=== PATIENT | male | born 1930 | race Caucasian/White ===

== ENCOUNTER 2017-03-07 14:33 | Inpatient (IN) | payer BC ==
[~2017-03-07] VITALS: Ht 200.7 cm; Wt 113.4 kg
[2017-03-07 14:41] VITALS: BP_SYST 108
[2017-03-07] MEDS ORDERED: NACL 0.9% 1,000 ML IV SCH ×2 (14:56→17:30)
[2017-03-07 15:13] LABS: BILIRUBIN,URINE NEGATIVE (NEGATIVE); BLOOD, URINE 2+ (NEGATIVE); CLARITY/URINE SL CLOUDY (CLEAR); COLOR,URINE YELLOW (YELLOW); GLUCOSE,URINE NEGATIVE (NEGATIVE); KETONES,URINE NEGATIVE (NEGATIVE); LEUKOCYTE ESTERASE ,URINE 3+ (NEGATIVE); NITRITE, URINE NEGATIVE (NEGATIVE); PH,URINE 5.5 (5.0-8.0); PROTEIN URINE TRACE (NEGATIVE); UROBILINOGEN,URINE 0.2 (0.2-1.0)
[2017-03-07 15:22] LABS: BACTERIA,URINE MANY /HPF (None Seen); MUCUS,URINE None Seen /LPF (None Seen); RBC,URINE 0-3 /HPF (0-3); WBC,URINE >100 /HPF (0-3)
[2017-03-07 15:23] LABS: HEMOGLOBIN 14.8 g/dL (14.0-18.0); RED CELL DISTRIBUTION WIDTH 15.7 % (9.0-15.0)
[2017-03-07 15:26] LABS: ANION GAP 7 (5-15); CALCIUM 9.3 mg/dL (8.4-11.0); CHLORIDE 105 mmol/L (98-107); CREATININE 1.52 mg/dL (0.55-1.30); GLUCOSE 124 mg/dL (70-99); HEMATOCRIT 46.5 % (36-54); MEAN CORPUSCULAR HEMOGLOBIN 31 pg (27-31); MEAN CORPUSCULAR HGB CONC 32 % (32-36); MEAN CORPUSCULAR VOLUME 98 fL (79.0-98.0); POTASSIUM 4.3 mmol/L (3.5-5.1); RED BLOOD CELL COUNT(AUTO) 4.76 MIL/uL (4.2-6.2); SODIUM SERUM 141 mmol/L (136-145); UREA NITROGEN, BLOOD 40 mg/dL (8-21)
[2017-03-07 15:29] LABS: INR 2.5 (0.80-1.20); PLATELET COUNT (AUTO) 67 K/uL (130-430); PROTHROMBIN TIME 28.1 SECS (9.5-12.5); WHITE BLOOD COUNT (AUTO) 123.3 K/uL (4.8-10.8)
[2017-03-07 15:31] LABS: ALANINE AMINOTRANSFERASE 19 U/L (12-78); ASPARTATE AMINOTRANSFERASE 19 U/L (10-37); TOTAL BILIRUBIN 2.1 mg/dL (0.0-1.0); TOTAL PROTEIN, SERUM 6.8 g/dL (6.4-8.3)
[2017-03-07 15:48] LABS: BAND % (MANUAL) 0 % (0-6); LYMPHOCYTES % (MANUAL) 19 % (20-46)
[2017-03-07 15:49] LABS: ATYPICAL LYMPHOCYTES % 71 % (0-0); BASOPHILS % (MANUAL) 0 % (0-2); EOSINOPHILS % (MANUAL) 0 % (0-7); MONOCYTES % (MANUAL) 0 % (0-11)
[2017-03-07] MEDS ORDERED: DIGO250T78 PO (15:53)
[2017-03-07] MEDS ORDERED: WARF4TAB2 PO (15:53)
[2017-03-07] MEDS ORDERED: FURO-150 PO (15:53)
[2017-03-07] MEDS ORDERED: CARV25TA55 PO (15:55)
[2017-03-07] MEDS ORDERED: PRED5TAB PO (15:55)
[2017-03-07] MEDS ORDERED: TAMS-11 PO (15:55)
[2017-03-07] MEDS ORDERED: BUDE6HFA INH (15:55)
[2017-03-07] MEDS ORDERED: VANCOMYCIN HCL 1,000 MG in NS 250 ML IV ONE (16:15)
[2017-03-07] MEDS ORDERED: NOREPINEPHRINE BITARTRATE 4 MG in NS 250 ML IV ONE (16:15)
[2017-03-07] MEDS ORDERED: PIPERACILLIN/TAZO 4.5 GM in NS 100 ML IV ONE (16:15)
[2017-03-07] MEDS ORDERED: PIPERACILLIN/TAZOBACTAM 4.5 GM/VIAL (ZOSYN) IV ONE (16:24)
[2017-03-07] MEDS: cefTRIAXone 1 GM IVPB PREMIX 50 ML IV SCH (17:15)
[2017-03-07 17:39] VITALS: BP_SYST 11
[2017-03-07 18:10] VITALS: BP_SYST 111
[2017-03-07 19:45] VITALS: BP_SYST 115
[2017-03-07] MEDS: 0.45% NACL 1,000 ML IV SCH (21:38)
[2017-03-07] MEDS: SULFAMETHOXAZOLE /TRIMETHOPRIM 10 ML in D5W 250 ML IV SCH (21:41)
[2017-03-07] MEDS: IPRATROPIUM/ALBUTEROL SULFATE 3 ML AMPUL.NEB INH SCH (22:29)
[2017-03-07 22:30] VITALS: BP_SYST 115
[2017-03-08] VITALS (7 sets, daily range): BP systolic 102–111
[2017-03-08] MEDS: IPRATROPIUM/ALBUTEROL SULFATE 3 ML AMPUL.NEB INH SCH ×6 (03:43→23:47)
[2017-03-08 06:26] LABS: INR 2.3 (0.80-1.20); PROTHROMBIN TIME 25.7 SECS (9.5-12.5)
[2017-03-08 06:47] LABS: HEMATOCRIT 44.7 % (36-54); HEMOGLOBIN 14.5 g/dL (14.0-18.0); MEAN CORPUSCULAR HEMOGLOBIN 32 pg (27-31); MEAN CORPUSCULAR HGB CONC 33 % (32-36); MEAN CORPUSCULAR VOLUME 97 fL (79.0-98.0); PLATELET COUNT (AUTO) 66 K/uL (130-430); RED CELL DISTRIBUTION WIDTH 15.3 % (9.0-15.0)
[2017-03-08 06:49] LABS: ALANINE AMINOTRANSFERASE 17 U/L (12-78); ALBUMIN 3.8 g/dL (3.4-4.8); ANION GAP 9 (5-15); ASPARTATE AMINOTRANSFERASE 19 U/L (10-37); CHLORIDE 107 mmol/L (98-107); CREATININE 1.44 mg/dL (0.55-1.30); GLUCOSE 116 mg/dL (70-99); POTASSIUM 4.2 mmol/L (3.5-5.1); SODIUM SERUM 140 mmol/L (136-145); TOTAL BILIRUBIN 2.2 mg/dL (0.0-1.0); TOTAL PROTEIN, SERUM 6.5 g/dL (6.4-8.3); UREA NITROGEN, BLOOD 39 mg/dL (8-21)
[2017-03-08 07:03] LABS: WHITE BLOOD COUNT (AUTO) 116.1 K/uL (4.8-10.8)
[2017-03-08 07:50] LABS: BAND % (MANUAL) 0 % (0-6); BASOPHILS % (MANUAL) 0 % (0-2); EOSINOPHILS % (MANUAL) 0 % (0-7); LYMPHOCYTES % (MANUAL) 95 % (20-46); MONOCYTES % (MANUAL) 4 % (0-11)
[2017-03-08] MEDS ORDERED: BUDESONIDE/FORMOTEROL 160-4.5 mCg, 6 GM INHALER INH SCH (09:00)
[2017-03-08] MEDS: PREDNISONE 5 MG TABLET PO SCH (09:22)
[2017-03-08] MEDS: DIGOXIN 0.25 MG TABLET PO SCH (09:22)
[2017-03-08] MEDS: TAMSULOSIN HCL 0.4 MG CAP PO SCH (09:22)
[2017-03-08] MEDS: SULFAMETHOXAZOLE /TRIMETHOPRIM 10 ML in D5W 250 ML IV SCH ×2 (09:24→20:36)
[2017-03-08] MEDS: FLUTICASONE/VILANTEROL 1 EACH BLST.W.DEV INH SCH (10:17)
[2017-03-08] MEDS: 0.45% NACL 1,000 ML IV SCH (10:21)
[2017-03-08] MEDS: cefTRIAXone 1 GM IVPB PREMIX 50 ML IV SCH (17:43)
[2017-03-08] MEDS ORDERED: WARFARIN SODIUM 4 MG TABLET PO SCH (18:00)
[2017-03-08] MEDS: CARVEDILOL 25 MG TABLET (COREG) PO SCH (20:37)
[2017-03-08] MEDS: LACTOBACILLUS RHAMNOSUS GG 1 CAP CAPSULE PO SCH (22:26)
[2017-03-09] MEDS: 0.45% NACL 1,000 ML IV SCH (02:16)
[2017-03-09] MEDS: IPRATROPIUM/ALBUTEROL SULFATE 3 ML AMPUL.NEB INH SCH ×3 (02:35→11:20)
[2017-03-09 03:54] VITALS: BP_SYST 104
[2017-03-09 06:51] LABS: BASOPHILS # (AUTO) 0.1 K/uL (0.0-0.2); BASOPHILS % (AUTO) 0.1 % (0.0-2.0); EOSINOPHILS # (AUTO) 0.3 K/uL (0.0-0.4); EOSINOPHILS % (AUTO) 0.2 % (0.0-4.0); HEMATOCRIT 44.6 % (36-54); HEMOGLOBIN 14.4 g/dL (14.0-18.0); LYMPHOCYTES % (AUTO) 91.2 % (20.5-51.5); MEAN CORPUSCULAR HEMOGLOBIN 32 pg (27-31); MEAN CORPUSCULAR HGB CONC 32 % (32-36); MEAN CORPUSCULAR VOLUME 98 fL (79.0-98.0); MONOCYTES # (AUTO) 3.8 K/uL (0.0-1.0); NEUTROPHILS % (AUTO) 5.5 % (40.0-70.0); RED BLOOD CELL COUNT(AUTO) 4.56 MIL/uL (4.2-6.2); RED CELL DISTRIBUTION WIDTH 15.5 % (9.0-15.0)
[2017-03-09 07:15] LABS: ALANINE AMINOTRANSFERASE 14 U/L (12-78); ALBUMIN 3.7 g/dL (3.4-4.8); ANION GAP 8 (5-15); ASPARTATE AMINOTRANSFERASE 21 U/L (10-37); CALCIUM 8.9 mg/dL (8.4-11.0); CHLORIDE 103 mmol/L (98-107); CREATININE 1.51 mg/dL (0.55-1.30); GLUCOSE 102 mg/dL (70-99); POTASSIUM 4.6 mmol/L (3.5-5.1); SODIUM SERUM 136 mmol/L (136-145); TOTAL BILIRUBIN 2.1 mg/dL (0.0-1.0); TOTAL PROTEIN, SERUM 6.4 g/dL (6.4-8.3); UREA NITROGEN, BLOOD 34 mg/dL (8-21)
[2017-03-09 07:46] LABS: WHITE BLOOD COUNT (AUTO) 127.2 K/uL (4.8-10.8)
[2017-03-09 07:47] LABS: PLATELET COUNT (AUTO) 53 K/uL (130-430)
[2017-03-09 08:06] LABS: IMMUNOGLOBULIN G, SERUM 644 mg/dL (700-1600); IMMUNOGLOBULIN M, SERUM 44 mg/dL (15-143)
[2017-03-09 08:19] VITALS: BP_SYST 108
[2017-03-09] MEDS: DIGOXIN 0.25 MG TABLET PO SCH (09:21)
[2017-03-09] MEDS: PREDNISONE 5 MG TABLET PO SCH (09:22)
[2017-03-09] MEDS: TAMSULOSIN HCL 0.4 MG CAP PO SCH (09:22)
[2017-03-09] MEDS: LACTOBACILLUS RHAMNOSUS GG 1 CAP CAPSULE PO SCH (09:22)
[2017-03-09] MEDS: CARVEDILOL 25 MG TABLET (COREG) PO SCH (09:22)
[2017-03-09] MEDS: SULFAMETHOXAZOLE /TRIMETHOPRIM 10 ML in D5W 250 ML IV SCH (09:22)
[2017-03-09] MEDS: FLUTICASONE/VILANTEROL 1 EACH BLST.W.DEV INH SCH (09:28)
[2017-03-09 11:39] VITALS: BP_SYST 105
[2017-03-09 13:18] VITALS: BP_SYST 108
[2017-03-09 13:45] VITALS: BP_SYST 108
[2017-03-09] MEDS ORDERED: SULF1TAB48 PO (13:54)
[2017-03-09 16:14] VITALS: BP_SYST 102
== END 2017-03-09 14:15 | disposition home or self-care (01) | DRG 871 ==
LOC: SED 14:33 → STU 17:15
DX: A41.9 Sepsis, unspecified organism (principal); R65.21 Severe sepsis with septic shock; N39.0 Urinary tract infection, site not specified; C91.10 Chronic lymphocytic leukemia of B-cell type not having achieved remission; N17.9 Acute kidney failure, unspecified; L03.115 Cellulitis of right lower limb; I87.2 Venous insufficiency (chronic) (peripheral); B96.20 Unspecified Escherichia coli [E. coli] as the cause of diseases classified elsewhere; M10.9 Gout, unspecified; D69.6 Thrombocytopenia, unspecified; I11.0 Hypertensive heart disease with heart failure; I25.10 Atherosclerotic heart disease of native coronary artery without angina pectoris; I48.91 Unspecified atrial fibrillation; J44.9 Chronic obstructive pulmonary disease, unspecified; I50.9 Heart failure, unspecified; Z88.1 Allergy status to other antibiotic agents; Z79.899 Other long term (current) drug therapy; Z79.01 Long term (current) use of anticoagulants; Z90.49 Acquired absence of other specified parts of digestive tract; I25.2 Old myocardial infarction; I95.9 Hypotension, unspecified
CPT/HCPCS: 36415; 71010; 80053; 80162-TC; 81000-TC; 82784; 83605; 83615-TC; 83880; 84484; 85007; 85025; 85027; 85610-TC; 85730-TC; 87040-TC; 87086; 87186-TC; 93005; 94640; 94760; 96365; 96368; 99291; J0696; J2543; J3370; J3490; J7030; J7050; J7060; J7512

== ENCOUNTER 2017-04-14 19:50 | Inpatient (IN) | payer BC ==
[~2017-04-14] VITALS: Ht 200.7 cm; Wt 119.3 kg
[~2017-04-14 19:50] MED LIST: BUDE6HFA INH; CARV25TA55 PO; DIGO250T78 PO; FURO-150 PO; PRED5TAB PO; SULF1TAB48 PO; TAMS-11 PO; WARF4TAB2 PO
[2017-04-14 19:57] VITALS: BP_SYST 114
[2017-04-14] MEDS ORDERED: NACL 0.9% 1,000 ML IV ONE (20:25)
[2017-04-14 20:55] LABS: HEMATOCRIT 45.3 % (36-54); HEMOGLOBIN 14.4 g/dL (14.0-18.0); MEAN CORPUSCULAR HEMOGLOBIN 31 pg (27-31); MEAN CORPUSCULAR HGB CONC 32 % (32-36); MEAN CORPUSCULAR VOLUME 97 fL (79.0-98.0); PLATELET COUNT (AUTO) 91 K/uL (130-430); RED BLOOD CELL COUNT(AUTO) 4.68 MIL/uL (4.2-6.2); RED CELL DISTRIBUTION WIDTH 15.2 % (9.0-15.0)
[2017-04-14] MEDS ORDERED: MINERAL OIL 133 ML ENEMA RC ONE (21:00)
[2017-04-14 21:07] LABS: ANION GAP 6 (5-15); CALCIUM 9.5 mg/dL (8.4-11.0); CHLORIDE 102 mmol/L (98-107); CREATININE 1.73 mg/dL (0.55-1.30); GLUCOSE 106 mg/dL (70-99); POTASSIUM 4.6 mmol/L (3.5-5.1); SODIUM SERUM 135 mmol/L (136-145); UREA NITROGEN, BLOOD 45 mg/dL (8-21)
[2017-04-14 21:12] LABS: ALANINE AMINOTRANSFERASE 17 U/L (12-78); ALBUMIN 3.8 g/dL (3.4-4.8); ASPARTATE AMINOTRANSFERASE 24 U/L (10-37); DIGOXIN 1.5 ng/mL (0.80-2.00); TOTAL BILIRUBIN 1.7 mg/dL (0.0-1.0); TOTAL PROTEIN, SERUM 6.5 g/dL (6.4-8.3)
[2017-04-14] MEDS ORDERED: MORPHINE 2 MG/ML INJ. SYRINGE IVP ONE (21:15)
[2017-04-14] MEDS ORDERED: DIPHENHYDRAMINE INJ 50 MG/ML VIAL IVP ONE (21:15)
[2017-04-14] MEDS ORDERED: cefTRIAXone 1 GM IVPB PREMIX 50 ML IV ONE (21:30)
[2017-04-14 21:55] LABS: ATYPICAL LYMPHOCYTES % 0 % (0-0); BAND % (MANUAL) 0 % (0-6); BASOPHILS % (MANUAL) 0 % (0-2); EOSINOPHILS % (MANUAL) 0 % (0-7); LYMPHOCYTES % (MANUAL) 93 % (20-46); MONOCYTES % (MANUAL) 2 % (0-11)
[2017-04-14 22:15] LABS: BILIRUBIN,URINE NEGATIVE (NEGATIVE); BLOOD, URINE 3+ (NEGATIVE); CLARITY/URINE SL HAZY (CLEAR); COLOR,URINE YELLOW (YELLOW); GLUCOSE,URINE NEGATIVE (NEGATIVE); KETONES,URINE NEGATIVE (NEGATIVE); LEUKOCYTE ESTERASE ,URINE NEGATIVE (NEGATIVE); NITRITE, URINE NEGATIVE (NEGATIVE); PH,URINE 5.5 (5.0-8.0); PROTEIN URINE NEGATIVE (NEGATIVE); UROBILINOGEN,URINE 0.2 (0.2-1.0)
[2017-04-14 22:44] LABS: BACTERIA,URINE FEW /HPF (None Seen); FINE GRANULAR CASTS,URINE 0-10 /LPF (None Seen); MUCUS,URINE 1+ /LPF (None Seen); RBC,URINE >100 /HPF (0-3)
[2017-04-14 23:01] LABS: INR 3.1 (0.80-1.20)
[2017-04-14 23:06] LABS: PROTHROMBIN TIME 34.5 SECS (9.5-12.5)
[2017-04-14] MEDS ORDERED: 0.45% NACL 1,000 ML IV SCH (23:59)
[2017-04-15] VITALS (8 sets, daily range): BP systolic 93–137
[2017-04-15] MEDS ORDERED: HYDROmorphone 1 MG INJ. 1 MG/ML AMPUL IVP PRN
[2017-04-15] MEDS ORDERED: LORazepam 2 MG/ML VIAL IVP PRN
[2017-04-15] MEDS ORDERED: ALBUTEROL SULFATE 0.083% 2.5 MG/3 ML VIAL.NEB INH PRN
[2017-04-15] MEDS ORDERED: VANCOMYCIN HCL 1,000 MG in NS 250 ML IV SCH (01:30)
[2017-04-15] MEDS ORDERED: VANCOMYCIN HCL 1000 MG/VIAL IV ONE (02:35)
[2017-04-15 07:26] LABS: HEMATOCRIT 47.7 % (36-54); HEMOGLOBIN 15.1 g/dL (14.0-18.0); MEAN CORPUSCULAR HEMOGLOBIN 31 pg (27-31); MEAN CORPUSCULAR HGB CONC 32 % (32-36); MEAN CORPUSCULAR VOLUME 97 fL (79.0-98.0); PLATELET COUNT (AUTO) 83 K/uL (130-430); RED CELL DISTRIBUTION WIDTH 15.3 % (9.0-15.0)
[2017-04-15 07:41] LABS: WHITE BLOOD COUNT (AUTO) 165.2 K/uL (4.8-10.8)
[2017-04-15] MEDS ORDERED: CARVEDILOL 25 MG TABLET (COREG) PO SCH (09:00)
[2017-04-15] MEDS ORDERED: DIGOXIN 0.25 MG TABLET PO SCH (09:00)
[2017-04-15] MEDS ORDERED: PREDNISONE 5 MG TABLET PO SCH (09:00)
[2017-04-15] MEDS ORDERED: WARFARIN SODIUM 4 MG TABLET PO SCH (09:00)
[2017-04-15] MEDS ORDERED: TAMSULOSIN HCL 0.4 MG CAP PO SCH (09:00)
[2017-04-15] MEDS ORDERED: BUDESONIDE/FORMOTEROL 160-4.5 mCg, 6 GM INHALER INH SCH (09:00)
[2017-04-15 10:49] LABS: ATYPICAL LYMPHOCYTES % 10 % (0-0); BAND % (MANUAL) 2 % (0-6); BASOPHILS % (MANUAL) 0 % (0-2); EOSINOPHILS % (MANUAL) 0 % (0-7); LYMPHOCYTES % (MANUAL) 80 % (20-46); MONOCYTES % (MANUAL) 2 % (0-11)
[2017-04-15] MEDS ORDERED: VANCOMYCIN HCL 1.25 GM/NS 250 ML IV ONE (11:00)
[2017-04-15] MEDS ORDERED: MUPIROCIN NASAL 2% OINT. 1 GM NS SCH (21:00)
[2017-04-16] MEDS ORDERED: VANCOMYCIN HCL 2,000 MG in NS 500 ML IV SCH (11:00)
== END 2017-04-15 18:00 | DRG 603 ==
LOC: SED 19:50 → SMU 23:59
DX: L03.115 Cellulitis of right lower limb (principal); C91.10 Chronic lymphocytic leukemia of B-cell type not having achieved remission; I48.91 Unspecified atrial fibrillation; I89.0 Lymphedema, not elsewhere classified; L03.116 Cellulitis of left lower limb; N28.9 Disorder of kidney and ureter, unspecified; J44.9 Chronic obstructive pulmonary disease, unspecified; K59.00 Constipation, unspecified; M10.9 Gout, unspecified; I25.2 Old myocardial infarction; Z90.49 Acquired absence of other specified parts of digestive tract; Z79.01 Long term (current) use of anticoagulants; Z79.899 Other long term (current) drug therapy; Z88.1 Allergy status to other antibiotic agents
CPT/HCPCS: 36415; 73590-TC; 74000-TC; 80053; 80162-TC; 81000-TC; 83605; 85007; 85027; 85610-TC; 85730-TC; 87040-TC; 93005; 93971; 96365; 96375; 99285; J0696; J1170; J1200; J2270; J3370; J7030; J7040; J7050; J7512

== ENCOUNTER 2017-05-11 10:45 | Inpatient (IN) | payer BC ==
[2017-05-11] VITALS (12 sets, daily range): BP systolic 67–118
[~2017-05-11] VITALS: Ht 182.9 cm; Wt 113.9 kg
[~2017-05-11 10:45] MED LIST changes: -SULF1TAB48 PO
[2017-05-11] MEDS ORDERED: NACL 0.9% 1,000 ML IV ONE (11:10)
[2017-05-11 11:28] LABS: HEMATOCRIT 45.8 % (36-54); HEMOGLOBIN 14.5 g/dL (14.0-18.0); MEAN CORPUSCULAR HEMOGLOBIN 31 pg (27-31); MEAN CORPUSCULAR HGB CONC 32 % (32-36); MEAN CORPUSCULAR VOLUME 99 fL (79.0-98.0); RED BLOOD CELL COUNT(AUTO) 4.65 MIL/uL (4.2-6.2); RED CELL DISTRIBUTION WIDTH 15.7 % (9.0-15.0)
[2017-05-11 11:29] LABS: ANION GAP 8 (5-15); CALCIUM 9.1 mg/dL (8.4-11.0); CHLORIDE 105 mmol/L (98-107); CREATININE 2.19 mg/dL (0.55-1.30); GLUCOSE 81 mg/dL (70-99); POTASSIUM 4.4 mmol/L (3.5-5.1); SODIUM SERUM 140 mmol/L (136-145); UREA NITROGEN, BLOOD 64 mg/dL (8-21)
[2017-05-11 11:30] LABS: ALBUMIN 3.3 g/dL (3.4-4.8)
[2017-05-11 11:37] LABS: INR 4.9 (0.80-1.20); PROTHROMBIN TIME 56.3 SECS (9.5-12.5)
[2017-05-11 11:40] LABS: PLATELET COUNT (AUTO) 39 K/uL (130-430); WHITE BLOOD COUNT (AUTO) 196.5 K/uL (4.8-10.8)
[2017-05-11 11:55] LABS: ALANINE AMINOTRANSFERASE 25 U/L (12-78); ASPARTATE AMINOTRANSFERASE 43 U/L (10-37); TOTAL BILIRUBIN 3.8 mg/dL (0.0-1.0)
[2017-05-11 12:12] LABS: BILIRUBIN,URINE 1+ (NEGATIVE); BLOOD, URINE 2+ (NEGATIVE); CLARITY/URINE HAZY (CLEAR); COLOR,URINE YELLOW (YELLOW); GLUCOSE,URINE NEGATIVE (NEGATIVE); KETONES,URINE NEGATIVE (NEGATIVE); LEUKOCYTE ESTERASE ,URINE NEGATIVE (NEGATIVE); NITRITE, URINE NEGATIVE (NEGATIVE); PROTEIN URINE 1+ (NEGATIVE)
[2017-05-11] MEDS ORDERED: NS 1000 ML BAG IV ONE (12:15)
[2017-05-11] MEDS ORDERED: CLINDAMYCIN 900 mg/50mL D5W 50 ML IV ONE (12:15)
[2017-05-11] MEDS ORDERED: NOREPINEPHRINE BITARTRATE 4 MG in D5W 250 ML IV ONE (12:15)
[2017-05-11] MEDS ORDERED: NOREPINEPHRINE 4 MG/4 ML VIAL IV ONE ×2 (12:23→16:13)
[2017-05-11 12:29] LABS: BACTERIA,URINE RARE /HPF (None Seen); WBC,URINE 0-3 /HPF (0-3)
[2017-05-11 12:30] LABS: URINE AMORPHOUS URATE 2+ /HPF (None Seen)
[2017-05-11] MEDS ORDERED: PIPERACILLIN/TAZO 3.375/DEX-IS 50 ML IV ONE (13:00)
[2017-05-11] MEDS ORDERED: ALBUMIN HUMAN 25% 100 ML IV SCH (13:30)
[2017-05-11 13:33] LABS: BAND % (MANUAL) 4 % (0-6); LYMPHOCYTES % (MANUAL) 86 % (20-46); MONOCYTES % (MANUAL) 7 % (0-11)
[2017-05-11 13:34] LABS: BASOPHILS % (MANUAL) 0 % (0-2); EOSINOPHILS % (MANUAL) 0 % (0-7)
[2017-05-11] MEDS ORDERED: NS 500 ML IV SCH (13:42)
[2017-05-11] MEDS ORDERED: NS 500 ML IV ONE ×2 (13:42→16:00)
[2017-05-11] MEDS ORDERED: NACL 0.9% 1,000 ML IV SCH (13:44)
[2017-05-11] MEDS ORDERED: VANCOMYCIN HCL 1,000 MG in D5W 250 ML IV ONE (13:45)
[2017-05-11] MEDS ORDERED: ONDANSETRON HCL 4 MG/2 ML VIAL IVP PRN (13:45)
[2017-05-11] MEDS ORDERED: PIPERACILLIN/TAZO 3.38 GM in D5W 50 ML IV ONE (13:45)
[2017-05-11] MEDS ORDERED: FLUTICASONE/VILANTEROL 1 EACH BLST.W.DEV INH ONE (14:45)
[2017-05-11] MEDS ORDERED: NOREPINEPHRINE BITARTRATE 4 MG in NS 246 ML IV PRN (15:00)
[2017-05-11] MEDS ORDERED: ALBUMIN HUMAN 25% 50 ML IV PRN (15:00)
[2017-05-11] MEDS: ALBUMIN HUMAN 25% 100 ML IV SCH ×2 (15:10→17:12)
[2017-05-11] MEDS: ALBUTEROL SULFATE 0.083% 2.5 MG/3 ML VIAL.NEB INH SCH ×3 (16:05→23:14)
[2017-05-11] MEDS ORDERED: DOPamine PREMIX 250 ML IV ONE (16:48)
[2017-05-11] MEDS: DOPamine PREMIX 250 ML IV PRN ×3 (17:00→21:40)
[2017-05-11] MEDS ORDERED: PIPERACILLIN/TAZO 3.375/DEX-IS 50 ML IV SCH (18:00)
[2017-05-11] MEDS: methylPREDNISolone SOD SUCC/PF 62.5 MG/ML VIAL IVP SCH (19:04)
[2017-05-11] MEDS: PIPERACILLIN/TAZO 2.25G/DEX-IS 50 ML IV SCH (19:04)
[2017-05-11] MEDS ORDERED: BUDESONIDE/FORMOTEROL 160-4.5 mCg, 6 GM INHALER INH SCH (21:00)
[2017-05-11] MEDS: NOREPINEPHRINE BITARTRATE 8 MG in NS 242 ML IV PRN (21:41)
[2017-05-12] VITALS (25 sets, daily range): BP systolic 74–133
[2017-05-12] MEDS: NOREPINEPHRINE BITARTRATE 8 MG in NS 242 ML IV PRN ×4 (00:48→22:53)
[2017-05-12] MEDS: PIPERACILLIN/TAZO 2.25G/DEX-IS 50 ML IV SCH ×2 (00:53→06:30)
[2017-05-12] MEDS: methylPREDNISolone SOD SUCC/PF 62.5 MG/ML VIAL IVP SCH ×3 (02:07→18:45)
[2017-05-12] MEDS: DOPamine PREMIX 250 ML IV PRN ×6 (02:08→23:04)
[2017-05-12] MEDS: ALBUTEROL SULFATE 0.083% 2.5 MG/3 ML VIAL.NEB INH SCH ×6 (03:55→23:24)
[2017-05-12 06:37] LABS: BASOPHILS # (AUTO) 7.4 K/uL (0.0-0.2); BASOPHILS % (AUTO) 3.1 % (0.0-2.0); HEMATOCRIT 48.9 % (36-54); HEMOGLOBIN 15.9 g/dL (14.0-18.0); LYMPHOCYTES # (AUTO) 159.4 K/uL (1.0-5.5); LYMPHOCYTES % (AUTO) 66.4 % (20.5-51.5); MEAN CORPUSCULAR HEMOGLOBIN 32 pg (27-31); MEAN CORPUSCULAR HGB CONC 33 % (32-36); MEAN CORPUSCULAR VOLUME 100 fL (79.0-98.0); MONOCYTES # (AUTO) 25.4 K/uL (0.0-1.0); MONOCYTES % (AUTO) 10.6 % (1.7-9.3); NEUTROPHILS # (AUTO) 47.7 K/uL (1.8-7.7); NEUTROPHILS % (AUTO) 19.9 % (40.0-70.0); RED BLOOD CELL COUNT(AUTO) 4.91 MIL/uL (4.2-6.2); RED CELL DISTRIBUTION WIDTH 17.2 % (9.0-15.0)
[2017-05-12 06:41] LABS: WHITE BLOOD COUNT (AUTO) 239.9 K/uL (4.8-10.8)
[2017-05-12 06:42] LABS: PLATELET COUNT (AUTO) 40 K/uL (130-430)
[2017-05-12 07:00] LABS: ALANINE AMINOTRANSFERASE 47 U/L (12-78); ALBUMIN 3.9 g/dL (3.4-4.8); ANION GAP 16 (5-15); ASPARTATE AMINOTRANSFERASE 62 U/L (10-37); CALCIUM 8.9 mg/dL (8.4-11.0); CHLORIDE 102 mmol/L (98-107); CREATININE 2.51 mg/dL (0.55-1.30); PHOSPHORUS 6.7 mg/dL (2.7-4.5); POTASSIUM 4.9 mmol/L (3.5-5.1); SODIUM SERUM 139 mmol/L (136-145); TOTAL BILIRUBIN 4.3 mg/dL (0.0-1.0); UREA NITROGEN, BLOOD 70 mg/dL (8-21)
[2017-05-12 07:05] LABS: GLUCOSE 45 mg/dL (70-99)
[2017-05-12 07:27] LABS: INR 3.4 (0.80-1.20); PROTHROMBIN TIME 38.7 SECS (9.5-12.5)
[2017-05-12] MEDS ORDERED: DEXTROSE 50% JECT 50 ML DISP.SYRIN ONE (07:44)
[2017-05-12] MEDS ORDERED: DEXTROSE 50% JECT 50 ML DISP.SYRIN IVP ONE (07:45)
[2017-05-12] MEDS ORDERED: WARFARIN SODIUM 4 MG TABLET PO SCH (09:00)
[2017-05-12] MEDS: ENOXAPARIN SODIUM 30 MG/0.3 ML SYRINGE SUBCUT SCH (09:00)
[2017-05-12] MEDS ORDERED: FLUTICASONE/VILANTEROL 1 EACH BLST.W.DEV INH SCH (09:00)
[2017-05-12] MEDS ORDERED: DIGOXIN 0.25 MG TABLET PO SCH (09:00)
[2017-05-12] MEDS: D5NS 1,000 ML IV SCH ×2 (09:40→17:45)
[2017-05-12] MEDS ORDERED: COMMUNICATION ORDER XX ONE (09:45)
[2017-05-12] MEDS ORDERED: FUROSEMIDE 40 MG/4 ML VIAL IVP ONE (09:45)
[2017-05-12] MEDS: CEFTAROLINE FOSAMIL ACETATE 400 MG in NS 250 ML IV SCH ×2 (14:56→22:47)
[2017-05-12] MEDS ORDERED: MIDAZOLAM HCL 2 MG/2 ML VIAL (VERSED) ONE (16:38)
[2017-05-12] MEDS ORDERED: MORPHINE 2 MG/ML INJ. SYRINGE IVP PRN (16:45)
[2017-05-12] MEDS ORDERED: PHENYLEPHRINE HCL 30 MG in NS 247 ML IV PRN (16:45)
[2017-05-12] MEDS: LORazepam 2 MG/ML VIAL IVP PRN (18:46)
[2017-05-12] MEDS ORDERED: SODIUM BICARBONATE 8.4% JECT 100 MEQ in D5W 1,000 ML IV SCH ×2 (19:30→20:00)
[2017-05-12] MEDS ORDERED: SODIUM BICARBONATE 8.4% JECT 50 MEQ/50 ML SYRINGE IVP ONE ×3 (20:00→22:45)
[2017-05-12] MEDS: SODIUM BICARBONATE 8.4% JECT 100 MEQ in D5W 1,000 ML IV SCH (20:00)
[2017-05-12] MEDS ORDERED: SODIUM BICARBONATE 8.4% JECT 50 MEQ/50 ML SYRINGE ONE ×2 (20:55→22:49)
[2017-05-12] MEDS: SYMBICORT 160/4.5 INH SCH (21:00)
[2017-05-13] VITALS (22 sets, daily range): BP systolic 66–148
[2017-05-13] MEDS ORDERED: SODIUM BICARBONATE 8.4% JECT 50 MEQ/50 ML SYRINGE IVP SCH
[2017-05-13] MEDS ORDERED: SODIUM BICARBONATE 8.4% JECT 50 MEQ/50 ML SYRINGE ONE (00:08)
[2017-05-13] MEDS: methylPREDNISolone SOD SUCC/PF 62.5 MG/ML VIAL IVP SCH ×2 (02:04→11:10)
[2017-05-13] MEDS: DOPamine PREMIX 250 ML IV PRN ×2 (03:33→15:26)
[2017-05-13] MEDS: ALBUTEROL SULFATE 0.083% 2.5 MG/3 ML VIAL.NEB INH SCH ×3 (04:01→11:44)
[2017-05-13] MEDS: NOREPINEPHRINE BITARTRATE 8 MG in NS 242 ML IV PRN (07:11)
[2017-05-13 07:17] LABS: BASOPHILS # (AUTO) 5.2 K/uL (0.0-0.2); BASOPHILS % (AUTO) 2.2 % (0.0-2.0); HEMATOCRIT 44.9 % (36-54); HEMOGLOBIN 14.6 g/dL (14.0-18.0); LYMPHOCYTES # (AUTO) 143.5 K/uL (1.0-5.5); LYMPHOCYTES % (AUTO) 60.9 % (20.5-51.5); MEAN CORPUSCULAR HEMOGLOBIN 32 pg (27-31); MEAN CORPUSCULAR HGB CONC 32 % (32-36); MEAN CORPUSCULAR VOLUME 98 fL (79.0-98.0); MONOCYTES # (AUTO) 36.1 K/uL (0.0-1.0); MONOCYTES % (AUTO) 15.3 % (1.7-9.3); NEUTROPHILS # (AUTO) 50.9 K/uL (1.8-7.7); NEUTROPHILS % (AUTO) 21.6 % (40.0-70.0); RED BLOOD CELL COUNT(AUTO) 4.56 MIL/uL (4.2-6.2); RED CELL DISTRIBUTION WIDTH 16.6 % (9.0-15.0)
[2017-05-13 07:39] LABS: WHITE BLOOD COUNT (AUTO) 235.7 K/uL (4.8-10.8)
[2017-05-13 07:52] LABS: ALANINE AMINOTRANSFERASE 379 U/L (12-78); ANION GAP 14 (5-15); ASPARTATE AMINOTRANSFERASE 571 U/L (10-37); CALCIUM 7.5 mg/dL (8.4-11.0); CHLORIDE 100 mmol/L (98-107); CREATININE 3.19 mg/dL (0.55-1.30); GLUCOSE 99 mg/dL (70-99); POTASSIUM 5.6 mmol/L (3.5-5.1); SODIUM SERUM 138 mmol/L (136-145); UREA NITROGEN, BLOOD 83 mg/dL (8-21)
[2017-05-13 08:07] LABS: DIGOXIN 2.5 ng/mL (0.80-2.00)
[2017-05-13 08:30] LABS: PLATELET COUNT (AUTO) 14 K/uL (130-430)
[2017-05-13 08:34] LABS: INR > 9.0 (0.80-1.20); PROTHROMBIN TIME > 90.0 SECS (9.5-12.5)
[2017-05-13] MEDS: SYMBICORT 160/4.5 INH SCH (09:00)
[2017-05-13] MEDS ORDERED: NOREPINEPHRINE BITARTRATE 16 MG in NS 234 ML IV PRN (09:00)
[2017-05-13] MEDS ORDERED: DIGOXIN 0.125 MG TABLET PO SCH (09:00)
[2017-05-13] MEDS: CEFTAROLINE FOSAMIL ACETATE 400 MG in NS 250 ML IV SCH (09:00)
[2017-05-13] MEDS: ENOXAPARIN SODIUM 30 MG/0.3 ML SYRINGE SUBCUT SCH (09:00)
[2017-05-13] MEDS: LORazepam 2 MG/ML VIAL IVP PRN (09:36)
[2017-05-13] MEDS ORDERED: FLUCONAZOLE 100 mg/ NS 50 ML IV SCH (10:45)
[2017-05-13] MEDS: SODIUM BICARBONATE 8.4% JECT 100 MEQ in D5W 1,000 ML IV SCH (11:54)
[2017-05-13] MEDS ORDERED: ACETAMINOPHEN 650 MG/20.3 ML UDC GT PRN (13:30)
[2017-05-13] MEDS ORDERED: ACETAMINOPHEN 650 MG/20.3 ML UDC ONE (13:50)
[2017-05-13] MEDS ORDERED: MORPHINE PCA 50 mg/50 mL NS 50 ML IV PRN (15:45)
[2017-05-13] MEDS ORDERED: MORPHINE PCA 50 mg/50 mL NS 50 ML IV ONE (16:10)
[2017-05-14] MEDS ORDERED: NACL 0.9% 1,000 ML IV SCH (12:00)
== END 2017-05-13 18:00 | disposition expired | DRG 871 ==
LOC: SED 10:45 → SIC 11:50
PROVIDERS: ADMIT Internal Medicine Hospice and Palliative Medicine; ATTEND Internal Medicine Hospice and Palliative Medicine
PROC: 06HM33Z Insertion of Infusion Device into Right Femoral Vein, Percutaneous Approach (ICD-10-PCS; principal; 2017-05-11)
PROC: B54BZZA Ultrasonography of Right Lower Extremity Veins, Guidance (ICD-10-PCS; 2017-05-11)
PROC: 30233L1 Transfusion of Nonautologous Fresh Plasma into Peripheral Vein, Percutaneous Approach (ICD-10-PCS; 2017-05-11)
PROC: 30233K1 Transfusion of Nonautologous Frozen Plasma into Peripheral Vein, Percutaneous Approach (ICD-10-PCS; 2017-05-11)
PROC: 5A1935Z Respiratory Ventilation, Less than 24 Consecutive Hours (ICD-10-PCS; 2017-05-12)
PROC: 0BH17EZ Insertion of Endotracheal Airway into Trachea, Via Natural or Artificial Opening (ICD-10-PCS; 2017-05-12)
PROC: 30233L1 Transfusion of Nonautologous Fresh Plasma into Peripheral Vein, Percutaneous Approach (ICD-10-PCS; 2017-05-12)
PROC: 30233K1 Transfusion of Nonautologous Frozen Plasma into Peripheral Vein, Percutaneous Approach (ICD-10-PCS; 2017-05-12)
PROC: 30233L1 Transfusion of Nonautologous Fresh Plasma into Peripheral Vein, Percutaneous Approach (ICD-10-PCS; 2017-05-13)
PROC: 30233K1 Transfusion of Nonautologous Frozen Plasma into Peripheral Vein, Percutaneous Approach (ICD-10-PCS; 2017-05-13)
DX: A41.9 Sepsis, unspecified organism (principal); R65.21 Severe sepsis with septic shock; J96.01 Acute respiratory failure with hypoxia; I50.23 Acute on chronic systolic (congestive) heart failure; N17.9 Acute kidney failure, unspecified; C95.00 Acute leukemia of unspecified cell type not having achieved remission; D68.9 Coagulation defect, unspecified; I25.82 Chronic total occlusion of coronary artery; C91.10 Chronic lymphocytic leukemia of B-cell type not having achieved remission; L03.115 Cellulitis of right lower limb; I82.401 Acute embolism and thrombosis of unspecified deep veins of right lower extremity; N39.0 Urinary tract infection, site not specified; E87.5 Hyperkalemia; Z51.5 Encounter for palliative care; R74.0 Nonspecific elevation of levels of transaminase and lactic acid dehydrogenase [LDH]; I73.9 Peripheral vascular disease, unspecified; R00.1 Bradycardia, unspecified; D69.6 Thrombocytopenia, unspecified; I87.2 Venous insufficiency (chronic) (peripheral); N40.0 Benign prostatic hyperplasia without lower urinary tract symptoms; E16.2 Hypoglycemia, unspecified; I89.0 Lymphedema, not elsewhere classified; J44.9 Chronic obstructive pulmonary disease, unspecified; R22.41 Localized swelling, mass and lump, right lower limb; N18.9 Chronic kidney disease, unspecified; M10.9 Gout, unspecified; M19.90 Unspecified osteoarthritis, unspecified site; I48.2 Chronic atrial fibrillation; I25.10 Atherosclerotic heart disease of native coronary artery without angina pectoris; Z87.891 Personal history of nicotine dependence; Z79.01 Long term (current) use of anticoagulants; Z79.52 Long term (current) use of systemic steroids; Z79.899 Other long term (current) drug therapy; I25.2 Old myocardial infarction; Z85.89 Personal history of malignant neoplasm of other organs and systems; Z88.1 Allergy status to other antibiotic agents; Z85.828 Personal history of other malignant neoplasm of skin; Z90.49 Acquired absence of other specified parts of digestive tract
CPT/HCPCS: 36415; 36600; 71010; 73700-TC; 80053; 80162-TC; 81000-TC; 82803-TC; 82962; 83605; 83615-TC; 83735-TC; 83874; 83880; 84100-TC; 84484; 85007; 85025; 85027; 85610-TC; 85730-TC; 86900; 86901; 87040-TC; 87070-TC; 87081; 87205-TC; 93005; 93306; 93923; 93970; 94002; 94003; 94640; 96365; 99285; C1751; J0712; J1265; J1450; J1940; J1956; J2060; J2270; J2370; J2543; J2930; J3370; J3465; J3490; J7030; J7040; J7042; J7050; J7060; P9046; P9059